=== PATIENT | female | born 2000 | race Caucasian/White ===

== ENCOUNTER 2018-06-08 21:50 | Emergency (ER) | payer MEDICAID ==
[~2018-06-08] VITALS: Ht 157.5 cm; Wt 80.3 kg
[2018-06-08 22:05] VITALS: Ht 157.5 cm; Wt 80.3 kg
[2018-06-08 23:30] VITALS: BP 111/79
== END 2018-06-08 23:30 | disposition home or self-care (01) ==
LOC: ED 21:50
DX: K21.9 Gastro-esophageal reflux disease without esophagitis (principal); G44.209 Tension-type headache, unspecified, not intractable; J30.9 Allergic rhinitis, unspecified; F17.210 Nicotine dependence, cigarettes, uncomplicated; Z71.6 Tobacco abuse counseling
CPT/HCPCS: 99406; Q0092